=== PATIENT | male | born 1995 | race Caucasian/White ===

== ENCOUNTER 2019-12-10 05:02 | Emergency (ER) | payer OTHER, SELFPAY ==
--- NOTE | 2019-12-10 05:09 | US_ITS ---
WS: [id number] TESTICULAR ULTRASOUND HISTORY: testicle pain COMPARISON: None available. TECHNIQUE: Real-time and color Doppler imaging or utilized to perform a testicular ultrasound. Right testicle: 4.8 cm x 2.6 cm x 2.2 cm. Normal size and echogenicity. No mass or torsion. Normal color Doppler is present throughout. Systolic and diastolic velocities are both present. No significant hydrocele. Right epididymis: Normal epididymis with no increased vascularity. Left testicle: 4.6 cm x 2.6 cm x 2.3 cm. Normal size and echogenicity. No mass or torsion. Normal color Doppler is present throughout. Systolic and diastolic velocities are both present. No significant hydrocele. Left epididymis: Normal epididymis with no increased vascularity. US/US scrotum [id number] IMPRESSION: NORMAL TESTICULAR ULTRASOUND. No evidence for torsion or mass.
--- NOTE | 2019-12-10 05:12 | W.ED.MALEGU ---
Documented by User: Yvrose Infante MD 12/10/19 05:21 HPI - Male Genitourinary General: Chief complaint: Urogenital-Male Stated complaint: GENITAL ISSUE Time Seen by Provider: 12/10/19 05:07 Source: patient Limitations: no limitations History of Present Illness: Complaint: testicle pain Onset (ago): hour(s) Duration: constant Location: left testicle Severity scale (1-10): 8 Quality: sharp Relieving factors: none Exacerbating factors: none Associated symptoms: Deny nausea or vomiting Review of Systems Const: Denies: fever or chills Eyes: Denies: change in vision ENMT: Denies: throat pain or mouth pain Card: Denies: chest pain Resp: Denies: shortness of breath GI: Denies: abdominal pain, nausea, vomiting or diarrhea : Reports: testicular pain Musc: Denies: back pain or joint pain Skin/Breast: Denies: rash Neuro: Denies: headache or behavioral changes Psych: Denies: depression Endo: Denies: excessive urination Morgan/Lymph: Denies: easy bruising All/Imm: Denies: hives PFSH ED PFSH: Statuses (acute, chronic, etc) shown below reflect problem list status as previously entered and may not be historically accurate Social History Smoking and tobacco status: never smoked Physical Exam Const: COMMON NORMALS: no apparent distress and healthy appearing HENMT: COMMON NORMALS: normocephalic and external nose normal HEAD & SCALP: normocephalic NOSE: external nose normal and no nasal discharge (nasal dischage) Eye: COMMON NORMALS: PERRL PUPIL: Yes PERRL Neck/C-Spine: COMMON NORMALS: full ROM and no lymphadenopathy Chest: COMMONS NORMALS: inspection of chest normal Resp: COMMON NORMALS: normal respiratory effort and clear to auscultation bilaterally AUSCULTATION: clear to auscultation bilaterally Cardio: COMMON NORMALS: regular rate and regular rhythm RATE: regular rate RHYTHM: regular rhythm GI: COMMON NORMALS: soft to palpation PALPATION: Yes soft : OTHER: tenderness over left testicle Extremity: COMMON NORMALS: normal to inspection, full ROM and normal capillary refill Psych: COMMON NORMALS: mental status grossly normal and cooperative Skin: COMMON NORMALS: no rashes or lesions noted GENERAL SKIN EXAM: no rashes or lesions noted Course Vital Signs: Vital signs: Vital Signs Temperature 98.1 F 12/10/19 05:13 Pulse Rate 89 12/10/19 05:13 Respiratory Rate 16 12/10/19 05:13 Blood Pressure 127/88 12/10/19 05:13 Pulse Oximetry 100 12/10/19 05:13 MDM - Male Lab Data: Labs: Lab Results 12/10/19 Range/Units 05:24 Urine Color Yellow (Yellow) Urine Appearance Clear (CLEAR) Urine pH 5 (5-7) Ur Specific Gravit y 1.030 (1.005-1.030) Urine Protein Neg (Negative) Urine Glucose (UA) Norm (Normal) Urine Ketones Negative (Negative) Urine Occult Blood Neg (Negative) Urine Nitrate Negative (Negative) Urine Bilirubin Neg (NEGATIVE) Urine Urobilinogen Norm (Negative) mg/dL Ur Leukocyte Shanice ase Negative (Negative) Discharge Plan Discharge Prescriptions: No Action No Known Home Medications RF: 0 Coding Level of Care Code ED 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 Exam Problem Focused Documented by User: Issac Cedeño DO 12/10/19 06:32 HPI - Male Genitourinary General: Chief complaint: Urogenital-Male Stated complaint: GENITAL ISSUE Time Seen by Provider: 12/10/19 05:07 PFSH ED PFSH: Statuses (acute, chronic, etc) shown below reflect problem list status as previously entered and may not be historically accurate Social History Smoking and tobacco status: never smoked Course Vital Signs: Vital signs: Vital Signs Temperature 98.1 F 12/10/19 05:13 Pulse Rate 89 12/10/19 05:13 Respiratory Rate 16 12/10/19 05:13 Blood Pressure 127/88 12/10/19 05:13 Pulse Oximetry 100 12/10/19 05:13 MDM - Male Lab Data: Labs: Lab Results 12/10/19 Range/Units 05:24 Urine Color Yellow (Yellow) Urine Appearance Clear (CLEAR) Urine pH 5 (5-7) Ur Specific Gravit y 1.030 (1.005-1.030) Urine Protein Neg (Negative) Urine Glucose (UA) Norm (Normal) Urine Ketones Negative (Negative) Urine Occult Blood Neg (Negative) Urine Nitrate Negative (Negative) Urine Bilirubin Neg (NEGATIVE) Urine Urobilinogen Norm (Negative) mg/dL Ur Leukocyte Shanice ase Negative (Negative) Discharge Plan Discharge Prescriptions: No Action No Known Home Medications RF: 0 Coding Level of Care Code ED 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
[2019-12-10 05:13] VITALS: BP 127/88; PULSE 89; RESP 16; TEMP 36.7; O2SAT 100; BMI 29.5
[2019-12-10] MEDS: HYDROcodone-acetaminophen 5-325 mg Tablet 1 TAB PO (05:23)
[2019-12-10 05:27] LABS: Add Urine Microscopic? NO
[2019-12-10 05:52] LABS: Bilirubin Urine Neg (NEGATIVE); Blood Urine Neg (Negative); Glucose Urine UA Norm (Normal); Ketones Urine Negative (Negative); Leukocyte Esterase Urine Negative (Negative); Nitrate Urine Negative (Negative); Protein Urine Neg (Negative); Urine Appearance Clear (CLEAR); Urine Color Yellow (Yellow); Urobilinogen Urine Norm (Negative); pH Urine 5 (5-7)
[2019-12-10 06:47] VITALS: BP 141/79; PULSE 86; RESP 16; O2SAT 98
--- NOTE | 2019-12-10 11:23 | DCPLANNER ---
ekg manager had message to schedule a follow up appointment for patient with Dr. Shi. ekg manager called the office of Dr. Shi, spoke with Keshia. ekg manager was told that patients information would be printed and given to Cristina for review. Clinic will call patient with appointment information. ekg manager will call for appointment information.
--- NOTE | 2019-12-11 12:37 | DCPLANNER ---
A follow up appointment is scheduled for patient for Friday, December 13, [address] at 8:[address] Shi. Clinic will call patient with appointment information.
--- NOTE | 2019-12-17 13:52 | DCPLANNER ---
Appointment scheduled for 12.13.19 has been cancelled.
== END 2019-12-10 06:49 | disposition home or self-care (01) ==
PROVIDERS: Emergency Medicine; Emergency Provider Family Medicine
DX: N50.819 Testicular pain, unspecified (principal)
CPT/HCPCS: 76870; 81003; 99281; 99282; 99283; A9270

== ENCOUNTER → 2022-04-29 09:50 | Outpatient (BNVA) | payer SELFPAY | PROVIDERS: Visit Provider Nurse Practitioner Family | DX: Z02.1 Encounter for pre-employment examination (principal) | CPT/HCPCS: 80307 ==